=== PATIENT | male | born 1985 | race Two or more races ===

== ENCOUNTER 2017-04-18 19:27 | Emergency (ER) | payer MEDICAID ==
[~2017-04-18] VITALS: Ht 182.9 cm; Wt 96.1 kg
[2017-04-18 19:32] VITALS: BP 127/75
[2017-04-18] MEDS ORDERED: LIDOCAINE 1%, 20ML INFIL ONE (20:30)
== END 2017-04-18 21:36 | disposition home or self-care (01) ==
LOC: ED 21:27
DX: L03.116 Cellulitis of left lower limb (principal); L02.416 Cutaneous abscess of left lower limb
CPT/HCPCS: 10060

== ENCOUNTER 2019-12-19 13:45 | Emergency (ER) | payer MEDICAID ==
[~2019-12-19] VITALS: Ht 182.9 cm; Wt 102.8 kg
[2019-12-19 14:23] LABS: BASOPHILS # (AUTO) 0.03 x10^3/uL (0-0.1); BASOPHILS % (AUTO) 0 % (0-1); EOSINOPHILS # (AUTO) 0.02 x10^3/uL (0-0.4); EOSINOPHILS % (AUTO) 0 % (1-7); LYMPHOCYTES # (AUTO) 1.77 x10^3/uL (1-3.4); LYMPHOCYTES % (AUTO) 22 % (22-44); MD NO; MEAN CORPUSCULAR HEMOGLOBIN 32.2 pg (27.5-34.5); MEAN CORPUSCULAR HGB CONC 33.8 g/dL (33.2-36.2); MEAN CORPUSCULAR VOLUME 95.2 fL (81-97); MEAN PLATELET VOLUME 8.9 fL (7.4-10.4); MONOCYTES # (AUTO) 0.26 x10^3/uL (0.2-0.8); MONOCYTES % (AUTO) 3 % (2-9); NEUTROPHILS # (AUTO) 5.96 x10^3/uL (1.8-6.8); NEUTROPHILS % (AUTO) 74 % (42-75); PLATELET COUNT 221 x10^3/uL (130-400); RED BLOOD COUNT 5.49 x10^6/uL (4.38-5.82); RED CELL DISTRIBUTION WIDTH 12.9 % (9.4-14.8)
[2019-12-19 14:32] LABS: ALANINE AMINOTRANSFERASE 44 U/L (12-78); ALBUMIN 4.1 g/dL (3.4-5.0); ANION GAP 4 mmol/L (5-15); CALCIUM 8.8 mg/dL (8.5-10.1); CHLORIDE 108 mmol/L (98-107); CREATININE 0.96 mg/dL (0.7-1.3)
[2019-12-19 14:35] LABS: ALKALINE PHOSPHATASE 99 U/L (45-117); BILIRUBIN,TOTAL 0.5 mg/dL (0.2-1.0); TOTAL PROTEIN 8.4 g/dL (6.4-8.2)
--- NOTE | 2019-12-19 15:27 | NUR ---
APPLICATION INTEGRATION ENGINEER: PT AMBULATORY WITH STEADY GAIT TO ROOM AT THIS TIME.
[2019-12-19] MEDS ORDERED: METHOCARBAMOL 500 MG TABLET ONE (16:14)
[2019-12-19] MEDS ORDERED: KETOROLAC 60 MG/2 ML ONE (16:14)
[2019-12-19] MEDS ORDERED: METHOCARBAMOL 750 MG TABLET PO ONE (16:30)
[2019-12-19] MEDS ORDERED: KETOROLAC 30 MG/1 ML IM ONE (16:30)
[2019-12-19 17:41] VITALS: BP 134/78
== END 2019-12-19 17:43 | disposition home or self-care (01) ==
LOC: ED 17:37
DX: G44.219 Episodic tension-type headache, not intractable (principal); F17.210 Nicotine dependence, cigarettes, uncomplicated; R19.7 Diarrhea, unspecified; R11.0 Nausea
CPT/HCPCS: 36415; 80053; 85025; 96372; 99283; J1885